=== PATIENT | female | born 1960 | race Caucasian/White ===

== ENCOUNTER 2017-02-21 03:14 | Day surgery (SDC) | payer OTHER ==
[2015-11-25 12:31] VITALS: Ht 172.7 cm; Wt 64.4 kg
[~2017-02-21] VITALS: Ht 172.7 cm; Wt 64.4 kg
[~2017-02-21 03:14] MED LIST: CEF300 PO; ESTR-33 PO; ESTRODIOL PO; FAMC500T18 PO; METH10 PO; METH5 PO; NALO12.5 PO; PER PO; TIZA2CAP3 PO; TIZA4CAP3 PO; WAR2 PO; premarin; soma; vicodin
[2017-02-21] MEDS ORDERED: CLINDAMYCIN(*) 600 MG/NS 50 ML 50 ML IVPB ONE (06:15)
[2017-02-21] MEDS ORDERED: FAMOTIDINE 20 MG TAB PO ONE (06:15)
[2017-02-21] MEDS ORDERED: MIDAZOLAM 2 MG/2 ML VIAL IVP ONE (06:15)
[2017-02-21] MEDS ORDERED: NORMOSOL R SOLN(*) 1000 ML BAG 1,000 ML IV PRN (06:15)
[2017-02-21] MEDS ORDERED: LIDOCAINE/SOD BICARB 8.4% SYR ID ONE (06:15)
[2017-02-21] MEDS ORDERED: BUPIV/EPI 0.25% 1:200,000 50ML INFIL ONE (06:51)
[2017-02-21 07:38] VITALS: BP 100/78
[2017-02-21] MEDS ORDERED: BUPIVACAIN 0.25% INJ 50ML VIAL ONE (08:21)
[2017-02-21] MEDS ORDERED: LIDO/EPI 1% MDV 1:100,000 20ML INFIL ONE (08:21)
[2017-02-21] MEDS ORDERED: MORPHINE 10 MG/ML SYR ONE (08:21)
[2017-02-21] MEDS ORDERED: NS(*) 0.9% 10 ML VIAL 10 ML ONE (08:21)
[2017-02-21] MEDS ORDERED: MIDAZOLAM 2 MG/2 ML VIAL ONE (08:29)
[2017-02-21] MEDS ORDERED: fentaNYL CITR 100 MCG/2 ML AMP ONE ×3 (08:29→12:12)
[2017-02-21] MEDS ORDERED: PROPOFOL EMUL(*) 10MG/ML 20 ML 20 ML ONE (08:30)
[2017-02-21] MEDS ORDERED: DEXAMETHASONE SOD PHOS 10MG/ML ONE (08:30)
[2017-02-21] MEDS ORDERED: LIDOCAINE MPF 1% 5 ML VIAL ONE (08:30)
[2017-02-21] MEDS ORDERED: ONDANSETRON 4 MG/2 ML VIAL ONE (08:30)
[2017-02-21] MEDS ORDERED: LIDOCAINE 2% JELLY 5 ML TUBE ONE (10:16)
[2017-02-21] MEDS ORDERED: KETAMINE HCL 500 MG/10 ML VIAL ONE (11:00)
[2017-02-21] MEDS ORDERED: CLIN300C99 PO (11:53)
[2017-02-21] MEDS ORDERED: LACTATED RINGER 3000 ML BAG IR ONE (11:58)
[2017-02-21 12:33] VITALS: BP 117/65
[2017-02-21] MEDS ORDERED: METHADONE 10 MG TAB PO ONE (12:45)
[2017-02-21 12:51] VITALS: BP 102/72
[2017-02-21 13:31] VITALS: BP 120/79
[2017-02-21 13:32] VITALS: BP 117/79
--- NOTE | 2017-02-22 17:32 | OPERATIVE REPORT 1 ---
EVENT DATE: February 21, 2017 SURGEON: Stanley Gifford MD ANESTHESIOLOGIST: David Goodwin MD ANESTHESIA: LMA. WAREHOUSE WORKER: BROOKS Huddleston PREOPERATIVE DIAGNOSES 1. Right knee questionable medial meniscus tear. 2. Chondromalacia patella. POSTOPERATIVE DIAGNOSES 1. Right knee medial meniscus tear and lateral meniscus tear. 2. Chondromalacia patella. 3. Multiple loose bodies. 4. Synovial chondromatosis. PROCEDURES PERFORMED 1. Right knee arthroscopy with partial medial and lateral meniscectomies. 2. Massive loose body removals, 2 cm x 1 cm each through accessory anteromedial and posteromedial portals. 3. Synovial chondromatosis extensive synovectomy with multiple small loose body removals, probably 50 loose bodies. 4. Chondroplasty of patella. 5. Extensive synovectomy. ESTIMATED BLOOD LOSS Minimal. COMPLICATIONS None. DRAINS None. SPECIMENS None. IMPLANTS USED None. HISTORY Ms. Moreno is a 56-year-old female with history of right knee pain. She was seen and evaluated in the [facility] and found to have a questionable tear of the medial meniscus as well as some chondral wear on the patella. Following discussion of the risks, benefits, alternatives, and possible complications, she wished to proceed with surgical intervention. DESCRIPTION OF PROCEDURE The patient was brought to the operating room and placed on the operating table in the supine position. A proper timeout was performed, identifying the patient , limb of surgery, and surgical procedure. The patient was given preoperative IV antibiotics and underwent LMA anesthesia. A well-padded upper thigh tourniquet was placed on the right lower extremity. The right lower extremity was then prepped and draped in the sterile orthopedic fashion. Knee examination demonstrated negative Renato's and negative anterior drawer. MCL demonstrated grade 2 laxity, but good endpoint. The LCL was stable preoperatively and postoperatively. Once completed, a superomedial port was established. The knee was insufflated. The tourniquet was brought up to 250 mmHg. The medial and lateral gutters demonstrated some loose articular cartilage debris. There was a large loose body sitting in the lateral gutter. The patella demonstrated diffuse grade 2 chondral wear, but it was tracking centrally at 39 degrees of engagement. The trochlea was in good condition. There was reactive synovitis in the suprapatellar pouch. The medial compartment was visualized. A medial portal was established under direct visualization. There was some grade I chondral wear on the femur and the tibia. The medial meniscus and posterior horn demonstrated no significant tearing. The body was good, but in the anterior horn near the anterior root, there was a large deformity involving the meniscus. This was visualized and then debrided with the shaver. As we debrided this, there was certainly a tear of the meniscus which was debrided with the shaver until stable meniscal tissue was obtained, but underlying this was a pocket full of loose bodies. These were consistent with a synovial chondromatosis. The synovium in this area then was debrided, as were all the small loose bodies. They were all about 3 to 4 mm in diameter, but there were several dozen of these in this pocket. These were removed until there were no longer anymore around. The reactive synovitis was then debrided. The surface was utilized for cauterization. There was also medial plica which was engaging the medial femoral condyle. This was debrided with the shaver and surface until it was no longer engaging. Once this was complete, the lateral compartment was visualized. The lateral meniscus did demonstrate some small degenerative tearing near the mid body. This was debrided with the shaver until a nice smooth transition was obtained. There was another loose body sitting underneath the meniscus. The accessory anteromedial portal was established, and there was another large loose body, again in the lateral gutter which was brought into the intercondylar notch and then removed. This was about 2 cm x at least 1 cm to 1.5 cm in width. Once complete, chondral biopsy was performed on the undersurface of the patella until stable articular cartilage was obtained. This suprapatellar reactive synovitis was debrided with the shaver and surface for cauterization, as were any that were seen in the gutters. Posterolateral aspect of the knee was then driven under direct visualization. There were a couple of small loose bodies present. These were removed without difficulty. The knee was milked, and there were no other loose bodies found. The posteromedial recess of the knee was driven, and there was another large loose body which was removed. This was , again, about 1.5 cm to 2 cm x 1 cm, removed through an accessory posteromedial portal which was established in the usual technique with blunt dissection. At this stage, there was also a strange pocket that was noticed in the posterior aspect of the knee. We felt that this was not just anything usual. At this stage, we very gently opened up this sac with a shaver as well as a probe. Upon doing so, just like we found in the anterior aspect of the knee, there was just a pocket full of several dozen loose bodies. These were extruded and removed with suctioning until this entire pocket was completely opened and debrided. We again took meticulous care not to enter any neurovascular bundles in this area. A second and third look was performed throughout the knee to look for any other loose bodies. We did not find any. All instrumentation was removed. The knee was drained. The portal sites were closed with 3-0 nylon. A postoperative anesthetic cocktail was injected. A standard postoperative dressing and Cryo/Cuff were applied. Ms. Moreno tolerated the procedure well. She was extubated and transferred to the PACU in stable condition. She will be placed on my knee arthroscopy protocol and follow up with me in 10 to 14 days. GALINA
== END 2017-02-21 12:31 | disposition home or self-care (01) ==
LOC: OR 03:14
PROVIDERS: ATTEND Orthopaedic Surgery
DX: M22.41 Chondromalacia patellae, right knee (principal); D48.0 Neoplasm of uncertain behavior of bone and articular cartilage; S83.241A Other tear of medial meniscus, current injury, right knee, initial encounter; S83.281A Other tear of lateral meniscus, current injury, right knee, initial encounter
CPT/HCPCS: 29876; 29880; 29999; J1100; J2001; J2250; J2270; J2405; J2704; J3010; J3490

== ENCOUNTER → 2017-08-12 | Outpatient (CLI) | payer OTHER ==
[2015-11-25 12:31] VITALS: BMI 22.7
[~2017-08-12] MED LIST changes: +CLIN300C99 PO
--- NOTE | 2017-08-13 08:38 | RADIOLOGY IMAGING REPORT ---
[place] [facility] [place]IENT NAME: FREDO MARSHALL : [id number] MR: [id number] V: [id number] EXAM DATE: [id number] ORDERING PHYSICIAN: CRISTOFER SPRINGER TECHNOLOGIST: Jordana Hogan PROCEDURE:BILATERAL DIGITAL SCREENING MAMMOGRAM WITH CAD ASSISTED INTERPRETATION & 3D TOMOSYNTHESIS COMPARISON:Prior mammograms 04/30/16, 03/21/15, 03/08/11. INDICATIONS:screening FINDINGS: Moderately heterogeneous fibroglandular tissue is seen throughout the breasts. The parenchymal pattern has remained stable allowing for difference in mammographic technique & patient positioning. There is no evidence of malignant appearing mass, malignant appearing calcifications or other secondary sign of malignancy in either breast. DIAGNOSTIC CATEGORY 1--NEGATIVE. RECOMMENDATIONS: ROUTINE MAMMOGRAM AND CLINICAL EVALUATION. IMPRESSION: BIRADS 1: Negative. No significant abnormality is seen. Dictated by: Katarzyna Mazariegos M.D. on 08/12/2017 at 15:09 Transcribed by: TERI on 08/12/2017 at 15:21 Approved by: Katarzyna Mazariegos M.D. on 08/13/2017 at 8:37 [facility]
== END ==
LOC: MAMO 00:54
PROVIDERS: ATTEND Nurse Practitioner Family
DX: Z12.31 Encounter for screening mammogram for malignant neoplasm of breast (principal)
CPT/HCPCS: 77063; 77067

== ENCOUNTER → 2017-08-12 | Outpatient (CLI) | payer OTHER ==
[2015-11-25 12:31] VITALS: BMI 22.7
--- NOTE | 2017-08-12 15:00 | RADIOLOGY IMAGING REPORT ---
FACILITY: [facility] PATIENT NAME: Rachelle Moreno : 1960 MR: [id number] V: [id number] EXAM DATE: ORDERING PHYSICIAN: SIMBA BUTT TECHNOLOGIST: Location: [facility] Patient: Rachelle Moreno : 1960 Visit/Account:[id number] Date of Sevice: 08/12/2017 L SPINE W/O CONTRAST COMPARISON: January 29, 2012 Additional pertinent history: Back pain with history of 5 lumbar fusion. Technique: Multiplanar multisequence lumbar spine MRI was performed without gadolinium enhancement. FINDINGS: Postoperative changes: Patient status post previous posterior interbody fusion of L2-S1. Vertebral body heights and alignment: Negative. Vertebral marrow signal: Negative. Distal thoracic cord and conus: Negative. The conus ends at T12-L1. Surrounding soft tissues: Negative. Inspection of the disc spaces reveal the following: L5-S1: Postoperative changes without significant disc bulge or disc protrusion. No significant canal or neural foraminal narrowing. No new findings from previous exam. L4-L5: Postoperative changes with minimal circumferential disc bulging. No significant canal or neura l foraminal narrowing. No change since previous exam. L3-L4: Postoperative changes without significant disc bulge or disc protrusion. No significant canal or neural foraminal narrowing. No change since previous exam. L2-L3: Postoperative changes with minimal circumferential disc bulging. No significant canal or neura l foraminal narrowing. No change since previous exam L1-L2: Posterior broad-based disc protrusion with facet hypertrophic changes. Mild bilateral neural f oraminal narrowing without canal stenosis. No change since previous exam. T12-L1: Minimal circumferential disc bulging without significant canal or neural foraminal narrowing. No change since previous exam. IMPRESSION: 1. Stable postoperative and spondylitic change as discussed above. 2. No new findings when compared to previous exam. 3. No significant canal stenosis noted. 4. Mild bilateral neural foraminal narrowing at L1-L2. Report Dictated By: Javier Fisher MD at 08/12/2017 2:51 PM Report E-Signed By: Javier Fisher MD at 08/12/2017 2:56 PM WSN:[id number]
== END ==
LOC: MRI 00:55
PROVIDERS: ATTEND Clinical Nurse Specialist Family Health
DX: M47.896 Other spondylosis, lumbar region (principal); Z98.890 Other specified postprocedural states; M48.061 Spinal stenosis, lumbar region without neurogenic claudication
CPT/HCPCS: 72148

== ENCOUNTER → 2018-01-16 | Outpatient (CLI) | payer OTHER ==
[2015-11-25 12:31] VITALS: BMI 22.7
--- NOTE | 2018-01-16 16:33 | EKG ---
FACILITY: [facility] [place] PATIENT NAME: FREDO MARSHALL : [id number] MR: [id number] V: [id number] EXAM DATE: ORDERING PHYSICIAN: CRISTOFER SPRINGER TECHNOLOGIST: Test Reason : 78347- EKG Blood Pressure : / mmHG Vent. Rate : 073 BPM Atrial Rate : 073 BPM P-R Int : 160 ms QRS Dur : 090 ms QT Int : 412 ms P-R-T Axes : 076 071 074 degrees QTc Int : 453 ms Sinus rhythm Possible left atrial enlargement Nonspecific ST findings Confirmed by JUAN BAL ([id number] on 01/16/2018 9:17:50 PM Referred By: Confirmed By:JUAN BAL
== END ==
LOC: CARD 16:16
DX: Z01.812 Encounter for preprocedural laboratory examination (principal); Z98.0 Intestinal bypass and anastomosis status; Z86.2 Personal history of diseases of the blood and blood-forming organs and certain disorders involving the immune mechanism
CPT/HCPCS: 93005

== ENCOUNTER → 2018-09-04 | Outpatient (CLI) | payer OTHER ==
[2015-11-25 12:31] VITALS: BMI 22.7
--- NOTE | 2018-09-04 14:54 | RADIOLOGY IMAGING REPORT ---
FACILITY: [facility] - [place] PATIENT NAME: FREDO MARSHALL : [id number] MR: [id number] V: [id number] EXAM DATE: ORDERING PHYSICIAN: CRISTOFER SPRINGER TECHNOLOGIST: Oly Vogt PROCEDURE: BILATERAL DIGITAL SCREENING MAMMOGRAM WITH CAD ASSISTED INTERPRETATION & 3D TOMOSYNTHESIS. REASON FOR STUDY: Screening. FAMILY HISTORY OF BREAST CANCER: Maternal grandmother & mother. BREAST PROCEDURES/TREATMENTS: None. COMPARISON: 08/12/17, 04/30/16, 03/21/15. VIEWS OBTAINED: 2D & 3D full field CC & MLO. BREAST DENSITY: The breasts are heterogeneously dense which can obscure small masses. MAMMOGRAM FINDINGS: The parenchymal pattern has remained stable allowing for difference in mammographic technique & patient positioning. IMPRESSION: BIRADS 1: Negative. DIAGNOSTIC CATEGORY 1--NEGATIVE. RECOMMENDATIONS: ROUTINE MAMMOGRAM AND CLINICAL EVALUATION. Dictated by: Katarzyna Mazariegos M.D. on 09/04/2018 at 13:27 Transcribed by: TERI on 09/04/2018 at 13:55 Approved by: Katarzyna Mazariegos M.D. on 09/04/2018 at 14:51 [facility]
== END ==
LOC: MAMO 00:59
PROVIDERS: ATTEND Nurse Practitioner Family
DX: Z12.31 Encounter for screening mammogram for malignant neoplasm of breast (principal)
CPT/HCPCS: 77063; 77067